=== PATIENT | male | born 2005 | race African-American/Black ===

== ENCOUNTER 2023-01-07 13:00 | Emergency (ER) | payer OTHER ==
[2023-01-07 13:11] VITALS: BP 127/69; PULSE 78; RESP 16; TEMP 98; BMI 25.1
[2023-01-07] MEDS ORDERED: IBUPROFEN 400 MG TABLET (FP) PO ONE ×2 (13:29→13:35)
== END 2023-01-07 15:25 | disposition home or self-care (01) ==
LOC: FER 13:00
DX: M25.511 Pain in right shoulder (principal); R22.31 Localized swelling, mass and lump, right upper limb; S43.101A Unspecified dislocation of right acromioclavicular joint, initial encounter; X50.0XXA Overexertion from strenuous movement or load, initial encounter; Y99.0 Civilian activity done for income or pay
CPT/HCPCS: 73030-TC-RT-FY; 99283-25